=== PATIENT | female | born 1960 | race Two or more races ===

== ENCOUNTER 2018-05-20 11:42 | Emergency (ER) | payer OTHER ==
[~2018-05-20] VITALS: Ht 160 cm; Wt 74.8 kg
[2018-05-20 11:53] VITALS: BP 148/96
[2018-05-20] MEDS ORDERED: methylPREDNISolone SOD SUCC 125 MG/2 ML VL IM ONE ×2 (12:30→12:45)
[2018-05-20] MEDS ORDERED: KETOROLAC TROMETH 60MG/2ML VIAL IM ONE (12:45)
== END 2018-05-20 13:58 | disposition home or self-care (01) ==
LOC: ER 11:42
DX: S33.5XXA Sprain of ligaments of lumbar spine, initial encounter (principal); J45.909 Unspecified asthma, uncomplicated; M51.26 Other intervertebral disc displacement, lumbar region; Z88.0 Allergy status to penicillin; X58.XXXA Exposure to other specified factors, initial encounter; Y93.9 Activity, unspecified; Y99.8 Other external cause status; Y92.89 Other specified places as the place of occurrence of the external cause
CPT/HCPCS: 72100; 96372; 99284; J1885; J2930

== ENCOUNTER 2024-04-29 12:49 | Inpatient (IN) | payer MEDICAID ==
[~2024-04-29] VITALS: Ht 157.5 cm; Wt 80.0 kg
[2024-04-29 13:35] LABS: Basophils # (auto) 0.1 10 ^3/uL (0-0.2); Basophils % (auto) 0.7 % (0.0-2.0); Eosinophils # (auto) 0.4 10 ^3/uL (0-0.8); Eosinophils % (auto) 4.9 % (0.0-7.0); Hematocrit 42.8 % (36.0-46.0); Hemoglobin 14.2 g/dL (12.2-16.2); Lymphocytes # (auto) 2.2 10 ^3/uL (0.4-5.4); Lymphocytes % (auto) 24.3 % (10.0-50.0); Mean Corpuscular Hemoglobin 31.3 pg (28.0-32.0); Mean Corpuscular Hgb Conc. 33.1 g/dL (32.0-36.0); Mean Corpuscular Volume 94.5 fL (80.0-100.0); Monocytes # (auto) 0.5 10 ^3/uL (0-1.3); Monocytes % (auto) 5.1 % (0.0-12.0); Neutrophils # (auto) 5.9 10 ^3/uL (1.6-8.6); Nucleated Red Blood Cells % 0.2 %; Red Blood Cells 4.52 10^6/uL (4.0-5.20); Red Cell Distribution Width 13.8 % (11.8-14.3); White Blood Cell 9.2 10^3/uL (4.4-10.8)
[2024-04-29 13:49] LABS: Alanine Aminotransferase 26 U/L (7-40); Albumin 4.4 g/dL (3.2-4.8); Alkaline Phosphatase 69 U/L (46-116); Anion Gap 7 (5-15); Aspartate Aminotransferase 24 U/L (13-40); BUN/Creatinine Ratio 14.1 (10.0-20.0); Bilirubin, Total 0.3 mg/dL (0.2-1.0); Blood Urea Nitrogen 9 mg/dL (9-23); Calcium 9.5 mg/dL (8.7-10.4); Carbon Dioxide 25 mmol/L (20-30); Chloride 109 mmol/L (98-107); Glucose 98 mg/dL (74-106); Potassium 3.8 mmol/L (3.5-5.1); Sodium 141 mmol/L (136-145); Total Protein 7.5 g/dL (5.7-8.2)
[2024-04-29] MEDS: SODIUM CHLORIDE 0.9% 1,000 ML IV ONE (16:06)
[2024-04-29] MEDS: METOCLOPRAMIDE HCL 5MG/ml INJ 2ml VIAL IV ONE (16:07)
[2024-04-29] MEDS: ACETAMINOPHEN 325 MG TAB PO ONE (16:07)
[2024-04-29] MEDS: hydrALAZINE HCL 20 MG/ML VL IV ONE (16:09)
[2024-04-29 16:16] VITALS: BP 149/90; PULSE 83; RESP 16; TEMP 97.9; O2SAT 96
[2024-04-29] MEDS ORDERED: NITROGLYCERIN 0.4 MG SL TAB SL PRN (18:00)
[2024-04-29] MEDS ORDERED: MORPHINE SULFATE INJ 2 MG/ml SYRG IV PRN (18:00)
== END 2024-04-29 17:55 | disposition left against medical advice (07) | DRG 199 ==
LOC: EDBD 12:49 → ER 12:49 → TELE 17:47
PROVIDERS: ADMIT Nurse Practitioner Family; ATTEND Nurse Practitioner Family
DX: I16.1 Hypertensive emergency (principal); I24.9 Acute ischemic heart disease, unspecified; J45.909 Unspecified asthma, uncomplicated; Z53.29 Procedure and treatment not carried out because of patient's decision for other reasons; Z90.710 Acquired absence of both cervix and uterus; Z88.0 Allergy status to penicillin; Z79.899 Other long term (current) drug therapy
CPT/HCPCS: 36415; 70450; 71046; 80053; 84484; 85025; 93005; 96361; 96374; G0378

== ENCOUNTER 2025-04-05 11:31 | Emergency (ER) | payer MEDICAID ==
--- NOTE | 2025-04-05 11:52 | ED.PDOC ---
History of Present Illness HPI Comments 64 year old female was BIB daughter for the c/c of Left lower Leg pain. Pt states that her leg is "broken" and has been "broken" since Saturday. Pt states that she went to [place] urgent care, notes that she received an X-Ray, and was told that her Fibula was broken. Pt was advised to come to [facility] for a further evaluation. Pt is noted to have a Hx of Asthma, HTN, Thyroid problems, a SHx of an Appendectomy, and prior C-Sections. No other associated modifiers at this time. 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 Family History Family History: Unobtainable Social History Smoker: Non-Smoker Alcohol: Denies ETOH Use Drugs: Denies Drug Use Lives In: Home Constitutional: denies: chills, diaphoresis, fatigue, fever, malaise, sweats, weakness, others EENTM: denies: blurred vision, double vision, ear bleeding, ear discharge, ear drainage, ear pain, ear ringing, eye pain, eye redness, hearing loss, mouth pain, mouth swelling, nasal discharge, nose bleeding, nose congestion, nose pain, photophobia, tearing, throat pain, throat swelling, voice changes, others Respiratory: denies: cough, hemoptysis, orthopnea, SOB at rest, shortness of breath, SOB with excertion, stridor, wheezing, others Cardiovascular: denies: chest pain, dizzy spells, diaphoresis, Dyspnea on exertion, edema, irregular heart beat, left arm pain, lightheadedness, palpitations, PND, syncope, others Gastrointestinal: denies: abdomen distended, abdominal pain, blood streaked bowels, constipated, diarrhea, dysphagia, difficulty swallowing, hematemesis, melena, nausea, poor appetite, poor fluid intake, rectal bleeding, rectal pain, vomiting, others Genitourinary: denies: abnormal vagina bleeding, burning, dyspareunia, dysuria, flank pain, frequency, hematuria, incontinence, pain, , vagina discharge, urgency, others Neurological: denies: dizziness, fainting, headache, left sided numbness, left sided weakness, numbness, paresthesia, pre-existing deficit, right sided numbness, right sided weakness, seizure, speech problems, tingling, tremors, weakness, others Musculoskeletal: reports: others (Left leg pain); denies: back pain, gout, joint pain, joint swelling, muscle pain, muscle stiffness, neck pain Integumetry: denies: bruises, change in color, change in hair/nails, dryness, laceration, lesions, lumps, rash, wounds, others Allergic/Immunocompromised: denies: Difficulty Healing, Frequent Infections, Hives, Itching, others Hematologic/Lymphatic: denies: anemia, blood clots, easy bleeding, easy bruising, swollen glands, others Endocrine: denies: excessive hunger, excessive sweating, excessive thirst, excessive urination, flushing, intolerance to cold, intolerance to heat, unexplained weight gain, unexplained weight loss, others Psychiatric: denies: anxiety, bipolar disorder, depression, hopeless, panic disorder, schizophrenia, sleepless, suicidal, others All Other Systems: Reviewed and Negative Physical Exam General Appearance: Mild Distress HEENT: Normal ENT Inspection, Pharynx Normal, TMs Normal Neck: Full Range of Motion, Non-Tender, Normal, Normal Inspection Respiratory: Chest Non-Tender, Lungs Clear, No Accessory Muscle Use, No Respiratory Distress, Normal Breath Sounds Cardiovascular: No Edema, No JVD, No Murmur, No Gallop, Normal Peripheral Pulses, Regular Rate/Rhythm Breast Exam: Deferred Gastrointestinal: No Organomegaly, Non Tender, No Pulsatile Mass, Normal Bowel Sounds, Soft Genitalia: Deferred Pelvic: Deferred Rectal: Deferred Extremities: No calf tenderness, Normal capillary refill, No pedal edema, Other (The patient's left lower extremities in a splint) Musculoskeletal : Apperance: Normal Neurologic: Alert, car repairer pullman II-XII nml as Tested, No Motor Deficits, Normal Affect, Normal Mood, No Sensory Deficits Cerebellar Function: Normal Reflexes: Normal Skin: Dry, Normal Color, Warm Lymphatic: No Adenopathy Was a procedure done? Was a procedure done?: No Differential Dx Considerations may include: Fracture, strain, contusion X-Ray, Labs, Meds, VS Vital Signs Date Time Temp Pulse Resp B/P (MAP) Pulse Ox O2 Delivery O2 Flow Rate FiO2 04/05/25 11:48 Room Air* 0 21 Time of 1ST Reevaluation: 12:18 Reevaluation 1ST: Unchanged Patient Education/Counseling: Diagnosis, Treatment Family Education/Counseling: Diagnosis, Treatment SEPSIS Sepsis Screen Physician Orders L Ankle 3 View (04/05/25 11:47) Vital Signs Date Time Temp Pulse Resp B/P (MAP) Pulse Ox O2 Delivery O2 Flow Rate FiO2 04/05/25 11:48 Room Air* 0 21 Departure 1 Departure Time of Disposition: 12:35 Impression: Primary Impression: Left fibular fracture Qualified Codes: S82.832A - Other fracture of upper and lower end of left fibula, initial encounter for closed fracture Disposition: 01 HOME / SELF CARE / HOMELESS Condition: Fair Discharged With: Self, Relative Critical Care Note Critical Care Time?: No Stability Stability form required: No Heart Score Heart Score: Heart Score Response (Comments) Value History N/A 0 EKG N/A 0 Age N/A 0 Risk Factors N/A 0 Troponin N/A 0 Total 0 I personally scribed for NADYA SOSA MD ([email or web address]) on 04/05/25 at 11:52. Electronically submitted by Shawn Ramos ([email or web address]). NADYA SOSA MD Apr 05, 2025 11:52
--- NOTE | 2025-04-05 12:33 | DVH ---
EXAM: XY L ANKLE 3 VIEW CLINICAL INDICATION: trauma TECHNIQUE: XY L ANKLE 3 VIEW Comparison: None FINDINGS/IMPRESSION: Fiberglass cast obscures fine bony detail. Nondisplaced obliquely oriented distal fibular fracture.
== END 2025-04-05 13:03 | disposition home or self-care (01) ==
LOC: ER 11:31
DX: S82.832A Other fracture of upper and lower end of left fibula, initial encounter for closed fracture (principal); I10 Essential (primary) hypertension; J45.909 Unspecified asthma, uncomplicated; Z90.49 Acquired absence of other specified parts of digestive tract; Z90.89 Acquired absence of other organs; Z98.890 Other specified postprocedural states; Z88.0 Allergy status to penicillin; X58.XXXA Exposure to other specified factors, initial encounter; Y93.89 Activity, other specified; Y92.89 Other specified places as the place of occurrence of the external cause; Y99.8 Other external cause status
CPT/HCPCS: 73610

== ENCOUNTER 2025-05-10 11:30 | Day surgery (SDC) | payer MEDICAID ==
[2025-05-07 14:55] LABS: Urine Protein, UAD Negative (Negative)
[2025-05-07 15:07] LABS: Alkaline Phosphatase 78 U/L (46-116); Anion Gap 7 (5-15); BUN/Creatinine Ratio 17.4 (10.0-20.0); Blood Urea Nitrogen 15 mg/dL (9-23); Calcium 10.1 mg/dL (8.7-10.4); Carbon Dioxide 30 mmol/L (20-31); Chloride 102 mmol/L (98-107); Glucose 90 mg/dL (74-106); Potassium 4.3 mmol/L (3.5-5.1); Sodium 139 mmol/L (136-145); Total Protein 8.0 g/dL (5.7-8.2)
[2025-05-07 15:08] LABS: Bilirubin, Total 0.3 mg/dL (0.2-1.0)
[2025-05-07 15:12] LABS: Alanine Aminotransferase 50 U/L (7-40); Albumin 5.0 g/dL (3.2-4.8)
[2025-05-07 15:13] LABS: INR 1.02 (0.9-1.15); Partial Thromboplastin Time 27.6 SEC (24.5-34.5); Prothrombin Time 10.8 sec (9.3-11.8)
[2025-05-07 15:31] LABS: Hematocrit 43.9 % (36.0-46.0); Hemoglobin 14.6 g/dL (12.2-16.2); Mean Corpuscular Hemoglobin 31.3 pg (28.0-32.0); Mean Corpuscular Volume 93.8 fL (80.0-100.0); Nucleated Red Blood Cells % 0.2 %
[~2025-05-10] VITALS: Ht 160 cm; Wt 79.4 kg
[2025-05-10] VITALS (7 sets, daily range): BP systolic 121; BP diastolic 61; PULSE 61–73; RESP 12–18; TEMP 97.5; O2SAT 93–98
[~2025-05-10 11:30] MED LIST: ACET-1080 PO; ATE50T PO; BUDE1AER5 IN; LORA-622 PO
[2025-05-10] MEDS: ceFAZolin 2 GM/D5W50ml 50 ML IV ONE (12:15)
[2025-05-10] MEDS ORDERED: fentaNYL CITRATE 100 MCG/2 ML VL ONE ×2 (12:23→15:58)
[2025-05-10] MEDS ORDERED: PROPOFOL 10 MG/ML 20 ML IV ONE (12:24)
[2025-05-10] MEDS ORDERED: HYDROmorphone HCL 2 MG/ML VL/or syr ONE ×2 (12:24→15:58)
[2025-05-10] MEDS: BUPIVACAINE HCL 50 ML ONE (12:40)
[2025-05-10] MEDS ORDERED: ONDANSETRON HCL 4 MG/2 ML VIAL ONE ×2 (12:58→16:33)
[2025-05-10] MEDS: BUPIVACAINE 0.5% INJ 50ML VIAL IJ ONE (13:05)
[2025-05-10] MEDS: ROPIVACAINE 0.5% (5MG/ML) 20ML AMPULE IJ ONE (13:35)
--- NOTE | 2025-05-10 14:09 | DVHOP2 ---
Operative Report - 2 Report Details Date: 05/10/25 Preop Diagnosis: 1. Left ankle fibular fracture 2. Left ankle syndesmosis disruption 3. Left ankle pain Postop Diagnosis: Same as preop Surgeon: Eric Melton MD Anesthesiologist: See anesthesia Anesthesia: General Implant: Arthrex lateral fibular plate with the accompanying screws Arthrex syndesmosis rope Consent: The patient was informed of the risks and benefits of the procedure. These include but are not limited to complications of anesthesia, postoperative infection, incomplete relief of symptoms, recurrence of symptoms, damage to blood vessels, nerves and tendons, deep venous thrombosis, pulmonary embolism and possible need for repeat surgery in the future. Complications: None Estimated Blood Loss: Minimal Fluids: See anesthesia Findings: Consistent with the diagnosis Indications for Surgery: Worsening left ankle fracture Name of Procedure Performed 1. Left fibular fracture ORIF (95398) 2. Left syndesmosis ORIF (02453) Procedure Details Procedure Details: PRE-PROCEDURE INFORMATION: In the pre-op holding area, the extremity to be operated on was clearly marked and the patient verified correct laterality of the marking. The patient was transferred to the OR table and placed in a supine position. A timeout was performed in which identification of the correct patient, procedure, location, and materials was done. The we will have foot and leg were prepped and draped in normal sterile fashion. The foot and leg were exsanguinated and the thigh tourniquet was inflated to 250 mmHg. DESCRIPTION OF PROCEDURE: Attention was directed to the left lateral leg with a fibula fracture was located. A linear longitudinal incision was made on the lateral leg. This incision was deepened with sharp and blunt dissection to the level of the periosteum. Care was taken throughout the dissection to avoid damage to the neurovascular structures in the peroneal tendons. A periosteal elevator was used to reflect all the soft tissue and periosteum from the bone in the fracture fragment. The fracture was visualized and any unwanted debris was removed from the fracture. Utilizing standard open reduction techniques, the fibular fracture was adequately reduced once temporary fixated with a bone reduction forceps. A locking plate with accompanying screws were then placed in the lateral fibula for permanent internal fixation. Using an Arthrex tight rope, it was drilled across from lateral to medial in the rope was placed. It was noted after the stressing of the medial gutter that there was limited gapping compared to preop x-rays. It was noted in the intraoperative fluoroscopy the adequate reduction of the deformity was obtained as well as adequate lengthening of the fibula back to its original length. All hardware was adequately placed verified on fluoroscopy as well. All surgical wounds were irrigated copiously with saline and closed in layers with the aforementioned suture material. A dry sterile dressing was placed on the surgical extremity. The patient was placed in a posterior splint POSTOPERATIVE INFORMATION: The patient tolerated the above noted procedure and anesthesia well and was transferred to the PACU with vital signs stable, and vascular status intact with capillary refill intact to all digits. Postoperative instructions reviewed in detail with the patient with written instructions provided. Patient will return to clinic in approximately 10-14 days for first postoperative visit. Patient has the number of the clinic and was instructed to call prior to that time should any problems, questions, or concerns arise. Condition Good Disposition Home ERIC MELTON DPM May 10, 2025 14:09
[2025-05-10] MEDS: ACETAMINOPHEN IV 1000 MG/100ML (10MG/ML) IV PRN (14:30)
[2025-05-10] MEDS: ACETAMINOPHEN IV 100 ML IV ONE (14:30)
[2025-05-10] MEDS: HYDROmorphone HCL 2 MG/ML VL/or syr ONE ×3 (14:30→15:31)
[2025-05-10] MEDS ORDERED: MEPERIDINE HCL (25 MG/ML) 1ML VIAL IV PRN (14:30)
[2025-05-10] MEDS ORDERED: METOCLOPRAMIDE HCL 5MG/ml INJ 2ml VIAL IV ONE (14:30)
[2025-05-10] MEDS ORDERED: ONDANSETRON HCL 4 MG/2 ML VIAL IV ONE (14:30)
[2025-05-10] MEDS: HYDROmorphone HCL 2 MG/ML VL/or syr IV PRN (14:30)
--- NOTE | 2025-05-10 14:56 | DVH ---
C-ARM FLUOROSCOPY: PROCEDURE: Left ankle ORIF FLUOROSCOPY TIME: 42.7 seconds DAP: 0.72 mgy FINDINGS: Spot intraoperative C arm radiographs demonstrating left ankle ORIF. IMPRESSION: Please refer to surgical report for detailed findings.
[2025-05-10] MEDS: ALBUTEROL SULF 2.5 MG/0.5ML(0.5%) NEB SOLN ONE (16:11)
[2025-05-10] MEDS: ALBUTEROL SULF 2.5 MG/0.5ML(0.5%) NEB SOLN NEB STA (16:12)
[2025-05-10] MEDS ORDERED: ROCURONIUM 10MG/ML 10ML VIAL IV ONE (16:17)
[2025-05-10] MEDS ORDERED: SUGAMMADEX 200mg/2ml Vial (100MG/ML) IV ONE (17:00)
== END 2025-05-10 17:20 | disposition home or self-care (01) ==
LOC: SUR 11:30
PROVIDERS: ATTEND Podiatrist
DX: S82.62XA Displaced fracture of lateral malleolus of left fibula, initial encounter for closed fracture (principal); S93.432A Sprain of tibiofibular ligament of left ankle, initial encounter; J45.909 Unspecified asthma, uncomplicated; I10 Essential (primary) hypertension; E03.9 Hypothyroidism, unspecified; Z98.891 History of uterine scar from previous surgery; Z90.89 Acquired absence of other organs; Z88.0 Allergy status to penicillin; Z79.899 Other long term (current) drug therapy; X58.XXXA Exposure to other specified factors, initial encounter; Y93.89 Activity, other specified; Y92.89 Other specified places as the place of occurrence of the external cause; Y99.8 Other external cause status
CPT/HCPCS: 27792; 36415; 73600; 80053; 81001; 85025; 85610; 85730; C1713; J0690; J1100; J1171; J2405; J2704; J2795; J3010; J3490; 76000; J0131

== ENCOUNTER 2025-05-28 10:52 | Emergency (ER) | payer MEDICAID ==
[~2025-05-28] VITALS: Ht 157.5 cm; Wt 75.0 kg
[2025-05-28] MEDS: SODIUM CHLORIDE 0.9% 1,000 ML IV ONE (11:00)
[2025-05-28 11:30] VITALS: PULSE 79; RESP 18; O2SAT 94
--- NOTE | 2025-05-28 11:43 | ED.PDOC ---
History of Present Illness HPI Comments 65-year-old female with a history of hypertension and asthma and recent left ankle ORIF brought in by wheelchair from outpatient clinic here for evaluation of a brief syncopal episode. Patient was here for postop follow-up status post recent left ankle ORIF, was having 1 suture removed and was experiencing pain. Daughter states the patient was crying in pain, then became pale and lost consciousness for a few sec while seated. There was no fall or injury. By the time the patient arrived in the ED, she was alert, stating she felt weak but was otherwise not having any headache, dizziness, chest pain, shortness of breath or other symptoms. Time Seen by MD: 10:53 Primary Care Provider: LAURA Allergies: Coded Allergies: Penicillins (Verified Allergy, Unknown, 09/10/16) Home Meds Active Scripts Clindamycin Hcl (Clindamycin Hcl) 300 Mg Cap, 1 CAP PO TID for 7 Days, #21 CAP Prov:YADIRA POSADA MD 05/28/25 Reported Medications Loratadine (Claritin) 10 Mg Tab, 10 MG PO DAILY, TAB 05/07/25 Budesonide-Formoterol Fumarate (Budesonide/Formoterol Fum 80-4.5 Mcg/Act) 1 Aer Aer, 1 AER IN, AER 05/07/25 Atenolol (TENORMIN TABLET) 50 Mg Tb, 50 MG PO DAILY, TAB 05/07/25 Acetaminophen (Tylenol 8 Hour Arthritis) 650 Mg Tab, 650 MG PO BID, TAB 05/07/25 Past Medical History PAST MEDICAL HISTORY: Asthma, HTN Surgical History: Appendectomy, , Thyroidectomy Surgical History (Other): Left ankle ORIF 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 Moist mucous membranes.) Neck: Full Range of Motion, Normal Inspection Respiratory: Lungs Clear, No Accessory Muscle Use, No Respiratory Distress, Normal Breath Sounds Cardiovascular: No Edema, No JVD, Regular Rate/Rhythm Breast Exam: Deferred Gastrointestinal: Non Tender, Soft Genitalia: Deferred Pelvic: Deferred Rectal: Deferred Extremities: Normal range of motion, No pedal edema, Other (Surgical wound left lateral ankle with sutures in place. Mild surrounding erythema, trace edema, and tenderness. No bleeding or discharge.) Neurologic: Alert (Oriented x4), Normal Affect, Normal Mood, Other (No gross focal deficit) Cerebellar Function: NOT DONE Reflexes: NOT DONE Skin: Dry, Pallor, Warm Lymphatic: NOT DONE Was a procedure done? Was a procedure done?: No Sedation Sedation?: No EKG EKG : Comments Sinus rhythm, rate 76, normal MA and QRS intervals, QTC prolonged at 485, normal axis, normal QRS, no ST/T change. Differential Dx Considerations may include: Vasovagal syncope, hypovolemia/orthostasis, arrhythmia, ID, electrolyte imbalance, wound infection, other infection such as UTI, among others X-Ray, Labs, Meds, VS Vital Signs Date Time Temp Pulse Resp B/P (MAP) Pulse Ox O2 Delivery O2 Flow Rate FiO2 05/28/25 12:00 98.3 79 18 165/91 (115) 93 98.3 05/28/25 11:30 79 18 94 Room Air* 0 21 05/28/25 11:20 76 15 05/28/25 11:20 98.6 76 15 108/61 (77) 96 98.6 05/28/25 11:20 98.6 76 15 168/61 96 98.6 05/28/25 10:55 76 Lab Test 05/28/25 14:21 05/28/25 13:18 Range/Units Troponin I High Sensitivity 18 16 </=34 ng/L White Blood Count 10.2 4.4-10.8 10^3/uL Red Blood Count 4.42 4.0-5.20 10^6/uL Hemoglobin 14.0 12.2-16.2 g/dL Hematocrit 41.3 36.0-46.0 % Mean Corpuscular Volume 93.4 80.0-100.0 fL Mean Corpuscular Hemoglobin 31.8 28.0-32.0 pg Mean Corpuscular Hemoglobin Concent 34.0 32.0-36.0 g/dL Red Cell Distribution Width 14.6 H 11.8-14.3 % Platelet Count 342 140-450 10^3/uL Mean Platelet Volume 8.5 6.9-10.8 fL Neutrophils (%) (Auto) 74.4 37.0-80.0 % Lymphocytes (%) (Auto) 20.1 10.0-50.0 % Monocytes (%) (Auto) 3.4 0.0-12.0 % Eosinophils (%) (Auto) 1.4 0.0-7.0 % Basophils (%) (Auto) 0.7 0.0-2.0 % Neutrophils # (Auto) 7.6 1.6-8.6 10 ^3/uL Lymphocytes # (Auto) 2.1 0.4-5.4 10 ^3/uL Monocytes # (Auto) 0.4 0-1.3 10 ^3/uL Eosinophils # (Auto) 0.1 0-0.8 10 ^3/uL Basophils # (Auto) 0.1 0-0.2 10 ^3/uL Nucleated Red Blood Cells 0.0 % Sodium Level 142 136-145 mmol/L Potassium Level 4.0 3.5-5.1 mmol/L Chloride Level 108 H 98-107 mmol/L Carbon Dioxide Level 24 20-31 mmol/L Anion Gap 10 5-15 Blood Urea Nitrogen 13 9-23 mg/dL Creatinine 0.68 0.550-1.02 mg/dL Glomerular Filtration Rate Calc 98 >90 mL/min BUN/Creatinine Ratio 19.1 10.0-20.0 Serum Glucose 92 74-106 mg/dL Calcium Level 8.7 8.7-10.4 mg/dL B-Type Natriuretic Peptide 15.90 0-100 pg/mL Current Medications Medications (Trade) Dose Ordered Sig/Kami Route Start Time Stop Time Status Last Admin Sodium Chloride 1,000 ml @ 1,000 mls/hr Q1H ONCE IV 05/28/25 11:00 05/28/25 11:59 DC 05/28/25 11:00 Acetaminophen/ Hydrocodone Bitart (Hamilton 5/325MG Tab) 1 tab ONCE ONCE PO 05/28/25 13:45 05/28/25 13:46 DC 05/28/25 14:04 Tetracaine/ Epinephrine/ Lidocaine 5 ml ONCE ONCE TOP 05/28/25 16:45 05/28/25 16:46 DC 05/28/25 17:02 X-Ray, Labs, Meds, VS Comment 65-year-old female with a history of hypertension and asthma and recent left ankle ORIF brought in by wheelchair from outpatient clinic here for evaluation of a brief syncopal episode. Vitals remarkable for BP 168/61 Exam remarkable for mild pallor. Left lateral ankle surgical wound appears mildly erythematous with trace edema and tenderness. There was no fluctuance, discharge or bleeding. Rhythm strip independently interpreted by me: Sinus rhythm, rate 76, no ectopy. CBC, basic metabolic panel, BNP and troponin unremarkable Patient treated with the following in the ED: 1 L 0.9 normal saline IV bolus, Hamilton 5/325 mg p.o. LET was applied to the ankle wound, as the patient was initially experiencing pain and anxiety when I attempted to remove the remaining sutures. The remaining sutures were easily removed. On re-evaluation, patient is alert, oriented, neurologically intact and states she wants to be discharged home. I will prescribe oral antibiotics to cover for possible mild wound infection. Time of 1ST Reevaluation: 11:42 Reevaluation 1ST: Improved Patient Education/Counseling: Diagnosis, Treatment, Need For Follow Up Family Education/Counseling: Diagnosis, Treatment, Need For Follow Up SEPSIS Sepsis Screen Physician Orders Urinalysis (05/28/25 10:53) Electrocardigram (05/28/25 10:53) Vital Signs Date Time Temp Pulse Resp B/P (MAP) Pulse Ox O2 Delivery O2 Flow Rate FiO2 05/28/25 12:00 98.3 79 18 165/91 (115) 93 98.3 05/28/25 11:30 79 18 94 Room Air* 0 21 05/28/25 11:20 76 15 05/28/25 11:20 98.6 76 15 108/61 (77) 96 98.6 05/28/25 11:20 98.6 76 15 168/61 96 98.6 05/28/25 10:55 76 Laboratory Tests Test 05/28/25 13:18 White Blood Count 10.2 10^3/uL (4.4-10.8) Medications Medications Dose Ordered Sig/Kami Route Start Time Stop Time Status Last Admin Dose Admin Acetaminophen/ Hydrocodone Bitart 1 tab ONCE ONCE PO 05/28/25 13:45 05/28/25 13:46 DC 05/28/25 14:04 Sodium Chloride 1,000 ml @ 1,000 mls/hr Q1H ONCE IV 05/28/25 11:00 05/28/25 11:59 DC 05/28/25 11:00 Tetracaine/ Epinephrine/ Lidocaine 5 ml ONCE ONCE TOP 05/28/25 16:45 05/28/25 16:46 DC 05/28/25 17:02 Departure 1 Departure Time of Disposition: 17:30 Impression: Primary Impression: Vasovagal syncope Additional Impression: Wound cellulitis after surgery Disposition: HOME / SELF CARE / HOMELESS Condition: Stable Additional Instructions: Your blood tests were unremarkable. I have prescribed antibiotics to cover a possible wound infection. Follow-up with your surgeon in 1-2 days. Return to ER for persistent or worsening pain, dizziness, fainting, or any other concern. e-Prescriptions Clindamycin Hcl (Clindamycin Hcl) 300 Mg Cap 1 CAP PO TID for 7 Days, #21 CAP Prov: YADIRA POSADA MD 05/28/25 Discharged With: Relative Critical Care Note Critical Care Time?: No Stability Stability form required: No Heart Score Heart Score: Heart Score Response (Comments) Value History N/A 0 EKG N/A 0 Age N/A 0 Risk Factors N/A 0 Troponin N/A 0 Total 0 YADIRA POSADA MD May 28, 2025 11:43
[2025-05-28 12:00] VITALS: BP 165/91; PULSE 79; RESP 18; TEMP 98.3; O2SAT 93
[2025-05-28 13:42] LABS: Hematocrit 41.3 % (36.0-46.0); Hemoglobin 14.0 g/dL (12.2-16.2); Mean Corpuscular Hemoglobin 31.8 pg (28.0-32.0); Mean Corpuscular Volume 93.4 fL (80.0-100.0); Nucleated Red Blood Cells % 0.0 %
[2025-05-28 13:56] LABS: Potassium 4.0 mmol/L (3.5-5.1); Sodium 142 mmol/L (136-145)
[2025-05-28 13:57] LABS: Anion Gap 10 (5-15); Carbon Dioxide 24 mmol/L (20-31)
[2025-05-28 13:58] LABS: Calcium 8.7 mg/dL (8.7-10.4); Chloride 108 mmol/L (98-107)
[2025-05-28 14:02] LABS: BUN/Creatinine Ratio 19.1 (10.0-20.0); Blood Urea Nitrogen 13 mg/dL (9-23); Glucose 92 mg/dL (74-106)
[2025-05-28] MEDS: HYDROcodone-ACET 5/325MG TAB PO ONE (14:04)
[2025-05-28] MEDS ORDERED: LIDOCAINE 2% TOPICAL JELLY 5 ML URJT TOP ONE (16:45)
[2025-05-28] MEDS: LET TOPICAL SOLN 5 ML TOP ONE (17:02)
[2025-05-28] MEDS ORDERED: CLIN1CAP70 PO (17:44)
--- NOTE | 2025-05-29 04:03 | ECG ---
[facility] Test Date: 2025-05-28 Test Time: 10:55:06 Pat Name: LG YOUNG Department: Room: Gender: F Board Writer: KONSTANTIN : 1960 Requested By: YADIRA WATKINS Order Number: [id number] Reading MD: Lalit Nunez Measurements Intervals [place] Rate: 76 P: 64 CA: 163 QRS: 0 QRSD: 97 T: 52 QT: 431 QTc: 485 Interpretive Statements Sinus rhythm Electronically Signed On 05-31-2025 22:49:11 PDT by Lalit Nunez Please click the below link to view image of tracing.
== END 2025-05-28 18:00 | disposition home or self-care (01) ==
LOC: ER 10:52
DX: T81.49XA Infection following a procedure, other surgical site, initial encounter (principal); R55 Syncope and collapse; J45.909 Unspecified asthma, uncomplicated; I10 Essential (primary) hypertension; Z90.89 Acquired absence of other organs; Z90.49 Acquired absence of other specified parts of digestive tract; Z88.0 Allergy status to penicillin; Z79.899 Other long term (current) drug therapy; Y92.89 Other specified places as the place of occurrence of the external cause
CPT/HCPCS: 36415; 80048; 83880; 84484; 85025; 93005; 96360; 99284; J7030